=== PATIENT | male | born 1945 | race Caucasian/White ===

== ENCOUNTER 2020-01-22 09:14 | Emergency (ER) | payer OTHER ==
[~2020-01-22] VITALS: Ht 170.2 cm; Wt 64.9 kg
[2020-01-22 09:19] VITALS: BP_SYST 206
--- NOTE | 2020-01-22 09:23 | NUR ---
ambulted to bed 2
--- NOTE | 2020-01-22 09:25 | NUR ---
Pt walked in with c/o FERNANDO x3 days, 10/17, denies any prior history. Pt BP elevated, other v/s stable, no fever at this time. Currently resting in bed, will continue to monitor.
--- NOTE | 2020-01-22 09:30 | NUR ---
Lab at bedside for blood draw.
--- NOTE | 2020-01-22 09:30 | NUR ---
ER Dr. Barksdale at bedside examining patient.
[2020-01-22] MEDS ORDERED: METOCLOPRAMIDE HCL 10 MG/2 ML VIAL IVP ONE (09:45)
[2020-01-22] MEDS ORDERED: DIPHENHYDRAMINE INJ 50 MG/ML VIAL IVP ONE (09:45)
--- NOTE | 2020-01-22 09:45 | NUR ---
Patient transported to radiology via wheelchair, accompanied by staff.
[2020-01-22 09:48] LABS: BASOPHILS # (AUTO) 0.1 K/uL (0.0-0.2); BASOPHILS % (AUTO) 0.9 % (0.0-2.0); EOSINOPHILS % (AUTO) 0.3 % (0.0-4.0); HEMATOCRIT 46.4 % (36-54); HEMOGLOBIN 15.7 g/dL (14.0-18.0); MEAN CORPUSCULAR HEMOGLOBIN 30 pg (27-31); MEAN CORPUSCULAR HGB CONC 34 % (32-36); MEAN CORPUSCULAR VOLUME 90 fL (79.0-98.0); MONOCYTES # (AUTO) 0.4 K/uL (0.0-1.0); MONOCYTES % (AUTO) 4.2 % (1.7-9.3); NEUTROPHILS # (AUTO) 7.4 K/uL (1.8-7.7); NEUTROPHILS % (AUTO) 83.6 % (40.0-70.0); PLATELET COUNT (AUTO) 125 K/uL (130-430); RED BLOOD CELL COUNT(AUTO) 5.17 MIL/uL (4.2-6.2); RED CELL DISTRIBUTION WIDTH 14.2 % (9.0-15.0); WHITE BLOOD COUNT (AUTO) 8.8 K/uL (4.8-10.8)
[2020-01-22 10:04] LABS: ANION GAP 13 (5-15); CALCIUM 8.5 mg/dL (8.4-11.0); CHLORIDE 98 mmol/L (98-107); CREATININE 1.19 mg/dL (0.55-1.30); GLUCOSE 129 mg/dL (70-99); POTASSIUM 3.9 mmol/L (3.5-5.1); SODIUM SERUM 133 mmol/L (136-145); UREA NITROGEN, BLOOD 26 mg/dL (8-21)
--- NOTE | 2020-01-22 11:00 | NUR ---
Patient given written and verbal discharge instructions and verbalizes understanding. ER MD discussed with patient the results and treatment provided. Patient in stable condition. ID arm band removed. IV catheter removed intact and dressing applied, no active bleeding. Rx of Amlodopine given. Patient educated on pain management and to follow up with PMD. Pain Scale 0. Opportunity for questions provided and answered. Medication side effect fact sheet provided.
[2020-01-22 11:01] VITALS: BP_SYST 156
== END 2020-01-22 11:01 | disposition home or self-care (01) ==
LOC: SED 09:14
DX: R51.9 Headache, unspecified (principal)
CPT/HCPCS: 36415; 70450; 76376; 80048; 85025; 96374; 96375; 99284; J1200; J2765

== ENCOUNTER 2022-03-30 19:39 | Emergency (ER) | payer MEDICAID, OTHER ==
[~2022-03-30] VITALS: Ht 170.2 cm; Wt 74.8 kg
[2022-03-30 20:14] VITALS: BP_SYST 125
[2022-03-30 21:00] LABS: BASOPHILS % (AUTO) 0.3 % (0.0-2.0); HEMATOCRIT 35.6 % (36-54); HEMOGLOBIN 11.9 g/dL (14.0-18.0); LYMPHOCYTES # (AUTO) 0.8 K/uL (1.0-5.5); LYMPHOCYTES % (AUTO) 10.8 % (20.5-51.5); MEAN CORPUSCULAR HEMOGLOBIN 30 pg (27-31); MEAN CORPUSCULAR HGB CONC 33 % (32-36); MEAN CORPUSCULAR VOLUME 90 fL (79.0-98.0); MONOCYTES # (AUTO) 0.4 K/uL (0.0-1.0); MONOCYTES % (AUTO) 5.7 % (1.7-9.3); NEUTROPHILS # (AUTO) 6.4 K/uL (1.8-7.7); NEUTROPHILS % (AUTO) 83.2 % (40.0-70.0); PLATELET COUNT (AUTO) 146 K/uL (130-430); RED BLOOD CELL COUNT(AUTO) 3.98 MIL/uL (4.2-6.2); RED CELL DISTRIBUTION WIDTH 13.7 % (9.0-15.0); WHITE BLOOD COUNT (AUTO) 7.7 K/uL (4.8-10.8)
[2022-03-30 21:10] LABS: ANION GAP 12 (5-15); CALCIUM 8.2 mg/dL (8.4-11.0); CHLORIDE 100 mmol/L (98-107); CREATININE 1.33 mg/dL (0.55-1.30); GLUCOSE 140 mg/dL (70-99); UREA NITROGEN, BLOOD 25 mg/dL (8-21)
[2022-03-30 21:32] LABS: ALANINE AMINOTRANSFERASE 24 U/L (12-78); AMYLASE 52 U/L (0-100); ASPARTATE AMINOTRANSFERASE 37 U/L (10-37); LACTATE DEHYDROGENASE 169 U/L (85-227); LIPASE 125 U/L (73-393); TOTAL BILIRUBIN 0.5 mg/dL (0.0-1.0)
[2022-03-30] MEDS ORDERED: IBUPROFEN 800 MG TABLET PO ONE (21:45)
[2022-03-30] MEDS ORDERED: NACL 0.9% 1,000 ML IV ONE (21:45)
[2022-03-30] MEDS ORDERED: ACET-2634 PO (21:52)
[2022-03-30] MEDS ORDERED: ONDA-8 TL (21:52)
[2022-03-30 22:02] LABS: ACETONE, SERUM NEGATIVE (NEGATIVE)
[2022-03-30 22:16] LABS: BILIRUBIN,URINE NEGATIVE (NEGATIVE); BLOOD, URINE NEGATIVE (NEGATIVE); CLARITY/URINE CLEAR (CLEAR); COLOR,URINE YELLOW (YELLOW); GLUCOSE,URINE NEGATIVE (NEGATIVE); KETONES,URINE NEGATIVE (NEGATIVE); LEUKOCYTE ESTERASE ,URINE NEGATIVE (NEGATIVE); NITRITE, URINE NEGATIVE (NEGATIVE); PROTEIN URINE 1+ (NEGATIVE); UROBILINOGEN,URINE 0.2 (0.2-1.0)
[2022-03-30 22:51] LABS: BACTERIA,URINE FEW /HPF (None Seen); RBC,URINE 0-3 /HPF (0-3); WBC,URINE 0-3 /HPF (0-3)
[2022-03-31 00:55] VITALS: BP_SYST 120
[2022-04-01] MEDS ORDERED: COR12.5 PO (10:24)
[2022-04-01] MEDS ORDERED: ASPI-1393 PO (10:24)
[2022-04-01] MEDS ORDERED: NOR10 PO (10:24)
[2022-04-01] MEDS ORDERED: MULT-1117 PO (10:24)
[2022-04-01] MEDS ORDERED: LOSA100T3 PO (10:24)
[2022-04-01] MEDS ORDERED: HYDR100T25 PO (10:24)
== END 2022-03-31 00:55 | disposition home or self-care (01) ==
LOC: SED 19:39
DX: A05.9 Bacterial foodborne intoxication, unspecified (principal); R19.7 Diarrhea, unspecified; R11.10 Vomiting, unspecified; R53.1 Weakness; I10 Essential (primary) hypertension; Z79.899 Other long term (current) drug therapy
CPT/HCPCS: 99283; 96360; 80053; 81000; 82009; 82150; 83615; 83690; 85025; 86140; 84484; 36415; 83605; J7030